=== PATIENT | female | born 1975 | race Caucasian/White ===

== ENCOUNTER 2020-11-23 16:22 | Emergency (ER) | payer OTHER, SELFPAY ==
[2020-11-23 16:23] VITALS: BP 137/84; PULSE 100; RESP 18; TEMP 37.1; O2SAT 95; BMI 40.2
--- NOTE | 2020-11-23 16:37 | ED.VIS.BACK ---
HPI History of Present Illness Chief Complaint: Back Informant: patient Onset/Context/Timing Onset: Yesterday Context: Sudden Onset Timing: Continuous Quality: Sharp and Aching Current Severity: Moderate Maximum Severity: Severe Worsened by: improves with Movement Associated Symptoms Associated Symptoms: Numbness (Right foot) Narrative Narrative: Patient presents secondary to back pain. Patient has a history of back pain and underwent surgery in February 2020. She had disc cleaned out at L4, L5, and S1. Patient states since her surgery has been doing very well. Yesterday she turned to get her leg out of the car and had instant pain in her lower back. She describes an aching sensation in her legs but no sharp shooting pain. She does note some numbness to her right foot. No problems with bowel or bladder control. There was no fall or direct injury. Patient did take Tylenol and ibuprofen approximately 3 hours ago. [facility] Medical History Anxiety Depression Hypothyroidism Home Medications clonazepam [Klonopin] 0.5 mg PO DAILY 11/23/20 [History Last Taken Unknown] cyclobenzaprine 10 mg PO BID PRN #10 tab 11/23/20 [Rx Last Taken Unknown] fluoxetine [Prozac] 80 mg PO DAILY 11/23/20 [History Last Taken Unknown] levothyroxine [Synthroid] 137 mcg PO DAILY 11/23/20 [History Last Taken Unknown] lidocaine [Lidoderm] 2 patch TOPICAL DAILY PRN #10 ea 11/23/20 [Rx Last Taken Unknown] oxycodone-acetaminophen [Percocet] 1 tab PO Q6H PRN 3 Days #14 tab 11/23/20 [Rx Last Taken Unknown] prednisone 60 mg PO DAILY #15 tab 11/23/20 [Rx Last Taken Unknown] risperidone 2 mg PO DAILY 11/23/20 [History Last Taken Unknown] Allergy/AdvReac Type Severity Reaction Status Date / Time amoxicillin Allergy Shortness Verified 11/23/20 16:33 of breath Surgical History History of back surgery Social History Smoking Status: Never smoker ROS ROS ED Constitutional Constitutional ED: Denies chills or fever(s) Eyes Eyes: Denies change in vision ENT ENT ED: Denies sore throat Cardiovascular Cardiovascular: Denies chest pain Respiratory/Chest Respiratory/Chest: Denies cough or dyspnea Gastrointestinal Gastrointestinal: Denies abdominal pain, diarrhea, nausea or vomiting Genitourinary Genitourinary ED: Denies dysuria Musculoskeletal Musculoskeletal: Reports back pain Integumentary Denies rash Neurologic Neurologic: Reports paresthesias RLE (Right foot); Denies headache(s) or weakness Psychiatric Psychiatric: Denies anxiety or depression Endocrine Endocrinology: Denies polydipsia or polyuria Allergic/Immunologic Allergic/Immunologic ED: Denies urticaria EXAM Physical Exam Const Vital Signs: 11/23/20 16:23 11/23/20 18:16 Temperature 98.7 F Temperature Source Temporal Pulse Rate 100 88 Respiratory Rate 18 15 Blood Pressure 137/84 H 124/86 H Blood Pressure Mean 101 Pulse Ox 95 Oxygen Delivery Method Room Air Positive well nourished and well developed General Appearance ED: well developed HEENT Reports normocephalic and head/scalp atraumatic Eyes PERRL and EOMs intact bilaterally Neck supple Chest Wall inspection of chest normal and palpation of chest normal Resp normal respiratory effort and clear to auscultation bilaterally Cardio regular rate and regular rhythm GI normal to inspection, nondistended, normoactive bowel sounds Palpation: soft Back/Spine normal to inspection Back/Spine Narrative: Tenderness throughout the lumbar midline and paraspinal region. No overlying skin changes. Extremity normal to inspection Neuro oriented x3 Neuro Narrative: Patient reports slight decrease sensation to light touch over the right foot only. Sensorium / Orientation: alert Motor Exam: strength 5/5 throughout Psych mental status grossly normal Skin no rashes or lesions noted MDM MDM MDM Narrative Medical decision making narrative: Patient was initially given IM Dilaudid, p.o. Flexeril, and a Lidoderm patch. This was followed by a dose of p.o. prednisone. Treatment and Re-Evaluation Comments:: On repeat evaluation patient is feeling improved. Spasms have eased in her back. She has been able to get up and ambulate to the restroom and back. She will be discharged with prescriptions for Percocet, prednisone, Flexeril, and Lidoderm patches. She will follow-up with her spine surgeon this week. With no direct injury to her back I did not feel imaging was going to be beneficial. Return instructions been provided. Discharge Plan Triage Chief Complaint: Back ED Provider: Valentine Diamond Dx/Rx/DC Orders Clinical Impression: Back pain Instructions: ED Back Pain (Acute or Chronic) Prescriptions: New prednisone 20 MG tablet 60 mg PO DAILY Qty: 15 RF: 0 oxycodone-acetaminophen [Percocet] 5-325 mg tablet 1 tab PO Q6H PRN (Reason: pain) 3 Days Qty: 14 RF: 0 cyclobenzaprine 10 mg tablet 10 mg PO BID PRN (Reason: muscle spasm) Qty: 10 RF: 0 lidocaine [Lidoderm] 5 % adhesive patch,medicated 2 patch topical DAILY PRN (Reason: back pain) Qty: 10 RF: 0 No Action fluoxetine [Prozac] 40 mg Capsule 80 mg PO DAILY RF: 0 levothyroxine [Synthroid] 137 mcg Tablet 137 mcg PO DAILY RF: 0 risperidone 2 mg Tablet 2 mg PO DAILY RF: 0 clonazepam [Klonopin] 0.5 mg Tablet,Disintegrating 0.5 mg PO DAILY RF: 0 Primary Care Provider: Lincoln Monet Referrals: Lincoln Monet MD [Primary Care Provider] - Activity Restrictions/Additional Instructions: Follow-up with Dr. Martins this week as discussed. Disposition Disposition: Home, self care Discharge Date/Time: 11/23/20 18:28
[2020-11-23] MEDS: Lidocaine 5% Patch 1 PATCH TOPICAL (16:51)
[2020-11-23] MEDS: cycloBENZAPRine HCl 10 MG Tablet PO (16:51)
[2020-11-23] MEDS: HYDROmorphone 0.5 MG/0.5 ML SYRINGE 1 MG IM (16:52)
[2020-11-23] MEDS: predniSONE 20 MG Tablet 60 MG PO (17:27)
[2020-11-23 18:16] VITALS: BP 124/86; PULSE 88; RESP 15
== END 2020-11-23 18:28 | disposition home or self-care (01) ==
PROVIDERS: Emergency Provider Emergency Medicine; PCP Family Medicine
DX: M54.5 Low back pain (principal); E03.9 Hypothyroidism, unspecified; F32.9 Major depressive disorder, single episode, unspecified; Z79.899 Other long term (current) drug therapy
CPT/HCPCS: 96372; 99283

== ENCOUNTER 2020-11-25 07:39 | Emergency (ER) | payer OTHER, SELFPAY ==
[2020-11-25 07:39] VITALS: BP 111/83; PULSE 102; RESP 16; TEMP 36.3; O2SAT 93; BMI 40.2
--- NOTE | 2020-11-25 08:15 | EDS_ITS ---
HPI History of Present Illness Chief Complaint: Back Informant: patient Narrative Narrative: Patient is a 45-year-old female with history of prior back surgery, hypothyroid, anxiety and depression presenting with worsening back pain. Patient states on Tuesday, 3 days ago, she was getting out of her car when she suddenly felt a significant pain in her back. She states she had surgery on her back [address] Sha Martins at [facility]. She states she had been having back problems since. She was seen in the ER 2 days ago where she was prescribed Flexeril, Percocet and prednisone. Patient states they are not helping with the pain. States the pain is in her lower back worse on the right and radiates down her right leg. She describes it as aching intermittently sharp. She notes has chronic numbness on the top of her right foot which is unchanged. She states her legs feel shaky and she is having hard time walking because of this. She denies any bowel or bladder incontinence. She states she has been doing some constipation and it hurts too much to try and bear down or sit on the toilet. She denies any perineal numbness. She has appointment see her primary care doctor tomorrow and has appointment to see her back doctor on January 05, which she states is the soonest they could see her. Patient previously seen pain management before her surgery but is not currently seeing pain management. No other complaints at this time. Prior similar symptoms: Yes and With Prior Back Pain [facility] Medical History Anxiety Depression Hypothyroidism Home Medications clonazepam [Klonopin] 0.5 mg PO DAILY 11/23/20 [History Last Taken Unknown] cyclobenzaprine 10 mg PO BID PRN #10 tab 11/23/20 [Rx Last Taken Unknown] fluoxetine [Prozac] 80 mg PO DAILY 11/23/20 [History Last Taken Unknown] levothyroxine [Synthroid] 137 mcg PO DAILY 11/23/20 [History Last Taken Unknown] lidocaine [Lidoderm] 2 patch TOPICAL DAILY PRN #10 ea 11/23/20 [Rx Last Taken Unknown] oxycodone-acetaminophen [Percocet] 1 tab PO Q6H PRN 3 Days #14 tab 11/23/20 [Rx Last Taken Unknown] prednisone 60 mg PO DAILY #15 tab 11/23/20 [Rx Last Taken Unknown] risperidone 2 mg PO DAILY 11/23/20 [History Last Taken Unknown] diazepam [Valium] 5 mg PO TID PRN #12 tab 11/25/20 [Rx Last Taken Unknown] Allergy/AdvReac Type Severity Reaction Status Date / Time amoxicillin Allergy Shortness Verified 11/23/20 16:33 of breath Surgical History History of back surgery Social History Smoking Status: Never smoker ROS ROS ED Constitutional Constitutional ED: Denies chills, fever(s) or malaise Eyes Eyes: Denies blurry vision or loss of vision ENT ENT ED: Denies rhinorrhea or sore throat Cardiovascular Cardiovascular: Denies chest pain or dizziness Respiratory/Chest Respiratory/Chest: Denies cough or dyspnea Gastrointestinal Gastrointestinal: Denies nausea or vomiting Genitourinary Genitourinary ED: Denies dysuria or hematuria Musculoskeletal Musculoskeletal: Reports back pain; Denies arthralgias or myalgias Integumentary Denies rash or wounds Neurologic Neurologic: Denies focal weakness or headache(s) Psychiatric Psychiatric: Denies anxiety or behavioral changes EXAM Physical Exam Const Vital Signs: 11/25/20 07:39 11/25/20 09:36 Temperature 97.4 F L Temperature Source Temporal Pulse Rate 102 H 62 Respiratory Rate 16 15 Blood Pressure 111/83 H 124/68 H Blood Pressure Mean 92 Pulse Ox 93 98 Oxygen Delivery Method Room Air Positive well nourished, well developed and no apparent distress General Appearance ED: well developed HEENT Reports normocephalic atraumatic Nose: no nasal discharge General Ear: hearing grossly impaired External Ear: external ears normal Mouth ED: Yes moist mucous membranes abnormal Mouth: moist mucous membranes abnormal Eyes PERRL and EOMs intact bilaterally Neck full ROM and no meningeal signs Chest Wall inspection of chest normal Resp normal respiratory effort and normal air movement Cardio regular rate and regular rhythm GI normal to inspection, nondistended, normoactive bowel sounds Back/Spine normal to inspection General Back: Negative for CVA tenderness Thoracic Spine / Upper Back: paraspinal muscle tenderness right Lumbar Spine / Lower Back: ROM limited Extremity normal to inspection and full ROM Neuro oriented x3, no focal motor deficits and no sensory deficits noted Neuro Narrative: No mild clonus of the feet. Normal strength with hip flexion, dorsiflexion and plantar flexion. Sensorium / Orientation: alert Motor Exam: strength 5/5 throughout Deep Tendon Reflexes: Rt Patellar (L4): 3+ and Lt Patellar (L4): 2+ Deep Tendon Reflexes Back: Rt Patellar (L4): 3+ and Lt Patellar (L4): 2+ Psych mental status grossly normal and thought process normal Skin no rashes or lesions noted and no wounds MDM MDM MDM Narrative Medical decision making narrative: Patient evaluated for low back pain. Patient was seen 3 days ago for the same complaint. Has been taking Percocet and Flexeril at home with no relief of her pain. She has appointment see her PCP tomorrow. She is trying to follow-up with her spine doctor as well. Patient's physical exam is not concerning for cauda equina syndrome. She does not have weakness or foot drop on exam. She does have a slightly hyper reflexive right patellar reflex. Patient does have paresthesias to the top of her right foot but this is chronic and unchanged. She is given IM morphine with some improvement of her symptoms. She is redosed and also started on Valium instead of Flexeril. Patient counseled on return precautions. She verbalized agreement understand this plan. Discharged home in stable condition. Discharge Plan Triage Chief Complaint: Back ED Provider: Destiney Saldivar Dx/Rx/DC Orders Clinical Impression: Back pain Instructions: ED Back Spasm, No Trauma, ED Sciatica Prescriptions: New diazepam [Valium] 5 mg tablet 5 mg PO TID PRN (Reason: muscle spasm) Qty: 12 RF: 0 No Action fluoxetine [Prozac] 40 mg Capsule 80 mg PO DAILY RF: 0 levothyroxine [Synthroid] 137 mcg Tablet 137 mcg PO DAILY RF: 0 risperidone 2 mg Tablet 2 mg PO DAILY RF: 0 clonazepam [Klonopin] 0.5 mg Tablet,Disintegrating 0.5 mg PO DAILY RF: 0 prednisone 20 MG tablet 60 mg PO DAILY Qty: 15 RF: 0 oxycodone-acetaminophen [Percocet] 5-325 mg tablet 1 tab PO Q6H PRN (Reason: pain) 3 Days Qty: 14 RF: 0 cyclobenzaprine 10 mg tablet 10 mg PO BID PRN (Reason: muscle spasm) Qty: 10 RF: 0 lidocaine [Lidoderm] 5 % adhesive patch,medicated 2 patch topical DAILY PRN (Reason: back pain) Qty: 10 RF: 0 Primary Care Provider: Lincoln Monet Referrals: Lincoln Monet MD [Primary Care Provider] - Activity Restrictions/Additional Instructions: Start taking a daily stool softener for constipation. You may also add in ibuprofen to help with pain. Follow-up with your doctor tomorrow if you need further pain prescriptions. You might also benefit from referral to pain management per the discretion of your primary care doctor. Disposition Disposition: Home, self care Discharge Date/Time: 11/25/20 10:30
[2020-11-25] MEDS: Morphine 4 MG/ML Syringe 8 MG IM (08:19)
[2020-11-25] MEDS: diazePAM 5 MG Tablet PO (09:33)
[2020-11-25] MEDS: Morphine 4 MG/ML Syringe 6 MG IM (09:33)
[2020-11-25 09:36] VITALS: BP 124/68; PULSE 62; RESP 15; O2SAT 98
== END 2020-11-25 10:30 | disposition home or self-care (01) ==
PROVIDERS: Emergency Provider Emergency Medicine; PCP Family Medicine
DX: M54.5 Low back pain (principal); E03.9 Hypothyroidism, unspecified; F32.9 Major depressive disorder, single episode, unspecified; F41.9 Anxiety disorder, unspecified; Z79.899 Other long term (current) drug therapy
CPT/HCPCS: 96372; 99282